=== PATIENT | male | born 1980 | race American Indian/Alaskan Native ===

== ENCOUNTER 2021-07-25 01:35 | Emergency (ER) | payer BC ==
[2021-07-25] MEDS ORDERED: TETANUS,DIPHTHERIA TOXOID ADULT 0.5 ML INJ IM ONE (01:40)
[2021-07-25] MEDS ORDERED: ONDANSETRON 4 MG/2 ML INJ IV ONE (01:43)
[2021-07-25] MEDS ORDERED: MORPHINE 4 MG/1 ML INJ IV ONE (01:43)
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
[2021-07-25 05:39] VITALS: BP 116/72
== END 2021-07-25 05:20 ==
LOC: ED 01:35
DX: S82.001B Unspecified fracture of right patella, initial encounter for open fracture type I or II (principal); X58.XXXA Exposure to other specified factors, initial encounter; F17.200 Nicotine dependence, unspecified, uncomplicated; F10.20 Alcohol dependence, uncomplicated; Y93.89 Activity, other specified; Y92.89 Other specified places as the place of occurrence of the external cause; Y99.8 Other external cause status
CPT/HCPCS: 73562; 90471; 90714; 96365; 96375; 99285; J0690; J2270; J2405; 99284